=== PATIENT | male | born 1985 | race Caucasian/White ===

== ENCOUNTER 2018-09-08 23:08 | Emergency (ER) | payer SELFPAY, OTHER ==
[2018-09-09] MEDS: DIPHTH/TET/ACEL PERTUSS (ADULT) 0.5 ML VIAL IM* (01:39)
[2018-09-09] MEDS ORDERED: LIDOCAINE 0.5% (SDV) 50 ML INJ INFIL (02:00)
[2018-09-09] MEDS: LIDOCAINE 0.5% (SDV) 50 ML INJ INFIL (02:03)
[2018-09-09] MEDS: LIDOCAINE 1% (MDV) 20 ML INJ SC (03:19)
== END 2018-09-09 03:23 | disposition home or self-care (01) ==
LOC: FTE 23:08
DX: S61.211A Laceration without foreign body of left index finger without damage to nail, initial encounter (principal); W26.8XXA Contact with other sharp object(s), not elsewhere classified, initial encounter; Y92.9 Unspecified place or not applicable; Z23 Encounter for immunization
CPT/HCPCS: 12001; 73140; 90471; 90715; 99283-25

== ENCOUNTER 2018-09-18 11:39 | Emergency (ER) | payer SELFPAY | END 2018-09-18 12:48 | disposition home or self-care (01) | LOC: FTE 11:39 | DX: R22.31 Localized swelling, mass and lump, right upper limb (principal) | CPT/HCPCS: 29130; 99283-25 ==